=== PATIENT | female | born 1975 | race Caucasian/White ===

== ENCOUNTER 2019-01-09 08:18 | Outpatient (REF) | payer OTHER, SELFPAY ==
[2019-01-09 12:00] LABS: Cholesterol 244 mg/dL (50-200); Glucose 84 mg/dL (70-100); HDL Cholesterol 44 mg/dL (40-60); LDL CHOLESTEROL 172 mg/dL (<100); Triglyceride 177 mg/dL (30-150)
== END 2019-01-09 08:38 ==
LOC: NCHCN 08:18
PROVIDERS: PCP Family Medicine; Visit Provider Family Medicine
DX: Z00.00 Encounter for general adult medical examination without abnormal findings (principal); Z13.220 Encounter for screening for lipoid disorders; Z13.1 Encounter for screening for diabetes mellitus
CPT/HCPCS: 80061; 82947; 83721

== ENCOUNTER 2019-05-04 01:05 | Emergency (ER) | payer OTHER, SELFPAY ==
--- NOTE | 2019-05-04 01:07 | ED.GENADUL_ITS ---
Discharge Plan Disposition Patient Disposition: HOME Condition: Good Discharge Details Chief Complaint: Orthopedic Clinical Impression: Pain of right calf Primary Care Provider: Lorenzo Breaux ED Provider: Villa Willson Home Meds and New Rx's Prescriptions: No Action PMT Vitamin 2 TID RF: 0 paroxetine HCl [Paxil] 30 MG tablet 1 tab PO DAILY RF: 0 Discharge Instructions Instructions: Leg Pain (ED) Additional Instructions: At this time although the likelihood is low for a blood clot it is still in the differential needs to be looked at further. Please come back tomorrow at your scheduled ultrasound appointment to rule out a blood clot. In the meantime I do feel that a muscle strain is a very likely cause of your pain as well. Please continue to use Tylenol, 1000 mg every 6 hours for pain. Please use ice and heat as needed. If you notice any worsening of your symptoms, or any new symptoms such as vomiting, diarrhea, fever, chills, shortness of breath, chest pain, numbness, weakness, or fainting , please return immediately to the emergency department for reevaluation. Please follow up with your primary care provider as soon as possible for reassessment and reevaluation. As always, it was a pleasure participating in your medical care today. Referrals: Lorenzo Breaux [Primary Care Provider] - Medical Decision Making This is a 43-year-old female who presents today for evaluation of right calf pain. She states that yesterday the pain started in her arch on her right foot and her ankle without any traumatic event. It then migrated up to her right calf. Pain is worse with palpation. She denies any trauma, redness, fever or chills. She denies any PE or DVT red flags. She denies any chest pain or shortness of breath. Exam demonstrates mildly reproducible tenderness over the medial aspect of the calf, no recent fluoroquinolone use. No evidence of significant trauma or deformity. Signs and symptoms appear consistent with mild tendinitis or muscle sprain. However the patient is notably concerning for DVT, which I do feel is reasonable. Unfortunately due to the current time ultrasound is not available. Limited bedside ultrasound showed notably compressible veins, however formal ultrasound is certainly indicated. We will schedule an ultrasound for tomorrow morning. We discussed blood thinners until she has her ultrasound tomorrow, however the patient states that she has a history of bleeding in the past when she took Paxil, and so because of this she does not want anything that could increase her chance of bleeding. We discussed the risk of this, and she understands and accepts these. She understands that this could lead to or disability if not appropriately treated prophylactically. Patient does understand this. Respecting the patient's wishes we will hold off on any blood thinners for the time being. We will schedule for an ultrasound tomorrow, recommend continue Tylenol, ice and heat. I have extensively reviewed the treatment plan and discharge instructions with the patient and their family. I have addressed all patient concerns at this time. The patient and family was made aware of what symptoms to monitor for that would warrant a return to the emergency department. Discussed the plan with the patient and family, they demonstrate verbal understanding and agreement with our assessment and plan at this time. HPI General Date/Time Provider Initiated Documentation: 05/04/19 01:07 . HPI Narrative: This is a pleasant 43-year-old female with a past medical history of d epression, and a previous GI bleed secondary to her previous medications who presents today for evaluation of right calf pain. The patient states that yesterday she noticed some pain in her foot and ankle, no initial traumatic incident to bring it about. The pain then transitioned from that location to her calf on the medial aspect. She describes it as an achy irritating-like sensation. Pain is made worse with movement. Improved by nothing. She has taken Tylenol and this is not significantly improved his symptoms. Denies DVT risk factors such as recent long car rides, immobilization, recent surgery, prior history of DVT or PE, family history of PE or DVT, morbid obesity, exogenous estrogen and smoking, hemoptysis, history of cancer. She denies any fever or chills. She denies any recent fluoroquinolone use. She denies any associated numbness or tingling or weakness. No other complaints at this time. No other modifying factors. Related Data Home Medications Medication Instructions Recorded Confirmed paroxetine HCl [Paxil] 1 tab PO DAILY 12/26/13 12/26/13 Pmt Vitamin 2 TID 01/22/14 Allergies Allergy/AdvReac Type Severity Reaction Status Date / Time Penicillins Allergy Unverified 01/22/14 13:33 apples Allergy Intermediate Diarrhea Uncoded 12/26/13 12:53 Review of Systems Review of Systems All systems reviewed & are unremarkable except as noted in HPI and below PFSH Medical History Anxiety Surgical History (Updated 07/18/18 @ 14:35 by [employer]) Cystectomy, Mini Lap Ovarian Tonsillectomy Family History (Updated 02/23/14 @ 21:25 by ) Other Heart disease Hyperlipidemia Social History Smoking/Tobacco Use Status: Former Tobacco Use Alcohol Intake: never Drug use: Never Do you feel safe at home: Yes Do you feel safe in your relationship?: Yes Exam Narrative Exam Narrative: 1.Const: Well-nourished, Well-developed, appearing stated age 2.Eyes: PERRL, no conjunctival injection, and symmetrical lids. 3.ENT: Atraumatic external nose and ears. Moist MM. Neck: Symmetric, trachea midline, No thyromegaly. 4.CVS: +S1/S2, No murmurs or gallops. Peripheral pulses 2+ and equal in all extremities. Brisk capillary refill in all extremities. 5.RESP: Unlabored respiratory effort. Clear to auscultation bilaterally. No wheezes rales or rhonchi 6.GI: Soft, Nontender/Nondistended, No hepatosplenomegaly. No guarding or rebound. 7.MSK: Normocephalic/Atraumatic, Extremities w/o deformity. No cyanosis or clubbing, Normal movement of all extremities. Right lower extremity 1 no tenderness on the heel, ankle, or foot. No evidence of plantar fasciitis. Normal neurovascular exam, normal sensation and movement throughout. Normal plantar and dorsiflexion strength. Mild reproducible tenderness over the medial aspect of the right calf. Negative Homans sign. Limited bedside ultrasound demonstrates compressible vessels. No redness, erythema, no tension of the calf. No evidence of muscular deformity. Compartments are soft. 8.Skin: Warm, Dry. No rashes or lesions. 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 Sensation grossly intact, no focal neurologic deficits. 10.Psych: (AAO) x3. Appropriate mood and affect
[2019-05-04 01:22] VITALS: BP 121/65; PULSE 80; RESP 20; TEMP 36.8; O2SAT 96
[2019-05-04 01:32] VITALS: BP 121/65; PULSE 80; RESP 20; O2SAT 96
== END 2019-05-04 01:32 | disposition home or self-care (01) ==
PROVIDERS: Emergency Provider Student in an Organized Health Care Education/Training Program; PCP Family Medicine
DX: M79.661 Pain in right lower leg (principal)
CPT/HCPCS: 99282

== ENCOUNTER 2019-05-04 11:13 | Outpatient (CLI) | payer OTHER, SELFPAY ==
--- NOTE | 2019-05-04 11:22 | DI.US_ITS ---
SYMPTOMS/DIAGNOSIS: RIGHT LOWER EXTREMITY CALF PAIN, ATRAUMATIC, X 3-4 DAYS RIGHT LOWER EXTREMITY ULTRASOUND: The femoral and popliteal veins and visualized calf veins are freely compressible. No thrombus is visible. The Doppler venous waveform augments normally. The saphenous vein also appears free of thrombus. No hematoma or Alberto's cyst is seen. IMPRESSION: Negative right lower extremity ultrasound.
--- NOTE | 2019-05-04 11:51 | DI.VRAD_ITS ---
EXAM: US Duplex Right Lower Extremity Veins, Limited EXAM DATE/TIME: 05/04/2019 11:44 AM CLINICAL HISTORY: 43 years old, female; Leg, lower; Right; Patient HX: Atraumatic ankle to calf pain x 3-4 days TECHNIQUE: Imaging protocol: Real-time Duplex ultrasound of the Right Lower Extremity with 2-D faye scale, color Doppler flow and spectral waveform analysis with image documentation. Limited exam was focused on the right lower extremity veins. COMPARISON: No relevant prior studies available. FINDINGS: Right deep veins: Unremarkable. The common femoral, femoral, proximal profunda femoral and popliteal veins are patent without thrombus. Normal Doppler waveforms. Normal compressibility and/or augmentation response. Right superficial veins: Unremarkable. Saphenofemoral junction is patent without thrombus. Soft tissues: Unremarkable. IMPRESSION: No acute findings. No evidence of deep vein thrombosis. Dictated and Authenticated by: Mylene Blanton MD. Ordering:PHI Driver MD
== END 2019-05-04 11:33 ==
PROVIDERS: PCP Family Medicine; Visit Provider Family Medicine Adult Medicine
DX: M79.661 Pain in right lower leg (principal)
CPT/HCPCS: 93971

== ENCOUNTER 2019-05-04 11:47 | Emergency (ER) | payer OTHER, SELFPAY ==
[2019-05-04 11:53] VITALS: BP 113/64; PULSE 76; RESP 16; TEMP 36.7; O2SAT 100
--- NOTE | 2019-05-04 14:46 | W.ED.GENAD ---
Discharge Plan Disposition Patient Disposition: HOME Condition: Good Discharge Details Chief Complaint: Recheck Clinical Impression: Right ankle strain Primary Care Provider: Lorenzo Breaux ED Provider: Orlando Ulloa Home Meds and New Rx's Prescriptions: No Action PMT Vitamin 2 tab PO TID RF: 0 sertraline [Zoloft] 50 mg Tablet 50 mg PO DAILY RF: 0 Discharge Instructions Instructions: Muscle Strain (ED) Additional Instructions: You may continue to use [id number] pain medication as needed for discomfort, slowly advance activity as tolerated and use the provided splint for the next 3 to 4 weeks. If not improving in the next couple weeks please follow-up with your primary care provider for reassessment and feel free to return to the emergency department for any new or significant worsening of symptoms Referrals: Lorenzo Breaux [Primary Care Provider] - (As needed for reassessment) Discharge Data Discharge Date/Time-TO BE ENTERED AT DEPARTURE: 05/04/19 14:54 Medical Decision Making Patient started having right arch, heel, ankle pain that is traveled up into her calf over the past couple days. Patient was seen the emergency department last night and informed this is most likely muscle skeletal but did have DVT study performed to rule out DVT given calf pain. Patient denies any known injury or trauma. Review of radiological imaging and radiologist dictation shows no evidence of deep thrombosis and no acute findings noted. Patient was fully assessed and does show medial mentis tenderness to the right ankle traveling up into the calf. Patient placed up in a lace up ankle brace for additional support which seemed to help her symptoms. Patient was encouraged to wear this over the next 3 to 4 weeks and follow-up with primary care provider as needed or if not improving. Return precautions were discussed. After discussion of diagnosis and plan of care patient has no further needs, questions, or concerns and states clear understanding to return to the emergency department for any worsening symptoms. HPI General Mode of arrival: ambulatory. Date/Time Provider Initiated Documentation: 05/04/19 11:51. Limitations to Documentation: no limitations. Information obtained by: patient and RN notes reviewed. History of Present Illness 43 year old F presents to the emergency department with the chief complaint of right leg pain, described as moderate, with intensity rated at 6. Quality is described as aching, and is localized to the right and lower extremity. Patient started experiencing this day(s) (3) and it has been constant. No exacerbating factors reported . Patient notes no other symptoms.. Related Data Home Medications Medication Instructions Recorded Confirmed Pmt Vitamin 2 tab PO TID 01/22/14 05/04/19 sertraline [Zoloft] 50 mg PO DAILY 05/04/19 05/04/19 Allergies Allergy/AdvReac Type Severity Reaction Status Date / Time Penicillins Allergy Unverified 05/04/19 11:57 apples Allergy Intermediate Diarrhea Uncoded 05/04/19 11:57 General Stated Complaint: Recheck DIPTI: 4 Review of Systems Cardiovascular Denies chest pain, Reports leg edema and Denies dyspnea Respiratory Denies dyspnea Musculoskeletal Reports as per HPI, Denies numbness and Denies tingling Neurologic Denies numbness, Denies sensory deficit and Denies tingling COUNT INCLUDES THE [facility] Surgical History (Updated 07/18/18 @ 14:35 by [employer] [place]) Cystectomy, Mini Lap Ovarian Tonsillectomy Family History (Updated 02/23/14 @ 21:25 by ) Other Heart disease Hyperlipidemia Social History Smoking/Tobacco Use Status: Former Tobacco Use Alcohol Intake: never Drug use: Never Do you feel safe at home: Yes Do you feel safe in your relationship?: Yes Exam Const General: cooperative, no acute distress and not ill appearing Orientation: alert, awake and oriented x3 HENMT Mouth: moist mucous membranes Resp Effort & Inspection: normal respiratory effort, able to speak in complete sentences and no respiratory distress Cardio Rate: regular rate Rhythm: regular rhythm Skin General skin exam: no rashes or lesions noted Extrem Right lower extremity: lower leg Details: tenderness Location: of the posterior calf and no edema; no erythema, no localized swelling, no palpable cords and no deformity, ankle Details: tenderness Location: anteromedially; not of the lateral malleolus and not of the medial malleolus; no swelling and foot Details: normal capillary refill, normal to inspection and toes with normal ROM; no tenderness Course Vital Signs Temperature 36.7 C 05/04/19 11:53 Pulse 76 05/04/19 11:53 Respiratory Rate 16 05/04/19 11:53 Blood Pressure 113/64 05/04/19 11:53 Pulse Oximetry 100 05/04/19 11:53 Temperature 36.7 C 05/04/19 11:53 Temperature Source Skin 05/04/19 11:53 Pulse 76 05/04/19 11:53 Respiratory Rate 16 05/04/19 11:53 Respiratory Effort Non-Labored 05/04/19 11:55 Blood Pressure 113/64 05/04/19 11:53 Pulse Oximetry 100 05/04/19 11:53 Pain Level 6 05/04/19 11:53
== END 2019-05-04 14:54 | disposition home or self-care (01) ==
PROVIDERS: Emergency Provider Nurse Practitioner Family; PCP Family Medicine
DX: S96.911A Strain of unspecified muscle and tendon at ankle and foot level, right foot, initial encounter (principal); X58.XXXA Exposure to other specified factors, initial encounter
CPT/HCPCS: L1902

== ENCOUNTER 2019-05-17 01:47 | Emergency (ER) | payer SELFPAY ==
[2019-05-17] VITALS (25 sets, daily range): BP systolic 118–135; BP diastolic 46–84; PULSE 76–93; RESP 12–22; TEMP 36.8; O2SAT 95–100
--- NOTE | 2019-05-17 01:52 | ED.GENADUL_ITS ---
Discharge Plan Disposition Patient Disposition: HOME Condition: Good Discharge Details Chief Complaint: Palpitatns Clinical Impression: Palpitations Primary Care Provider: Lorenzo Breaux ED Provider: Lalo Watson Home Meds and New Rx's Prescriptions: Continued sertraline [Zoloft] 50 mg Tablet 20 mg PO DAILY RF: 0 calcium carbonate-vitamin D3 [Calcium 500 + D] 500 mg(1,250mg) -200 unit Tablet 1 tab PO DAILY RF: 0 Discharge Instructions Instructions: Palpitations (ED) Additional Instructions: Your EKG is unchanged from previous. Your laboratory studies are unremarkable. Vital signs including heart rate remained normal here in the department. Please follow-up with primary care next week. Return to emergency department for chest pain, shortness of breath, syncope, neurologic changes, other concerns. Referrals: Lorenzo Breaux [Primary Care Provider] - Medical Decision Making Patient presents with complaint of palpitations, generalized weakness, lightheadedness. She has a history of anxiety but has never really had palpitations like this. She reports a maximum heart rate of 115 according to her Fitbit. Vital signs here are normal. Physical exam is unremarkable. EKG shows sinus rhythm. She has not been ill. She denies having any type of chest pain or back pain. There is no shortness of breath. With maximum heart rate of 115 doubt significant arrhythmia. IV is in place. We will give a liter of fluid. I will check basic labs including a TSH. Laboratory studies are unremarkable. Potassium is mildly low but not enough so to cause significant symptoms. TSH was high but free T4 is come back normal. Patient's vital signs have remained normal here. There is been no arrhythmias or tachycardia. Patient does state she feels a little better but still does not feel herself. She has received a liter of fluid. I think she can be discharged follow-up with primary care as outpatient. Return to ED for chest pain, shortness of breath, syncope, neurologic changes, other concerns. Lab Data Lab results reviewed: Yes I reviewed the patient's lab results. ECG Data Attestation: I personally reviewed and interpreted this ECG (s) as follows: Prior ECG tracings: available for review Interpretation: Normal sinus rhythm at a rate of 80. Normal axis and intervals. No acute ST changes. No significant change compared to EKG from 2007. HPI General Mode of arrival: EMS . Date/Time Provider Initiated Documentation: 05/17/19 01:50 . Limitations to Documentation: no limitations . Information obtained by: patient, RN notes reviewed and old records reviewed . HPI Narrative: Patient presents to ED with complaints of palpitations. Patient awoke with palpitations and felt like her heart was racing. She became lightheaded and weak. She reports general weakness not focal. She felt like she was going to pass out. She developed some nausea. At no time did she get chest pain, pressure, tightness. She had no shortness of breath. She did not have syncope. She has not been ill. There has been no fever, vomiting, diarrhea. She reports that her Fitbit documented her heart rate as high as 115. She became concerned and had her called EMS. Related Data Home Medications Medication Instructions Recorded Confirmed sertraline [Zoloft] 20 mg PO DAILY 05/04/19 05/17/19 calcium carbonate-vitamin D3 1 tab PO DAILY 05/17/19 05/17/19 [Calcium 500 + D] Allergies Allergy/AdvReac Type Severity Reaction Status Date / Time Penicillins Allergy Unverified 05/17/19 01:57 apples Allergy Intermediate Diarrhea Uncoded 05/17/19 01:57 General DIPTI: 4 Review of Systems Review of Systems 07/15 Review of Systems completed and is negative except as stated above in HPI (Systems reviewed: Const, Eyes, ENT, Resp, CV, GI, , MSK, Skin, Neuro) PFSH Medical History Anxiety Surgical History Cystectomy, Mini Lap Ovarian Tonsillectomy Family History (Updated 02/23/14 @ 21:25 by ) Other Heart disease Hyperlipidemia Social History Smoking/Tobacco Use Status: Former Tobacco Use Alcohol Intake: never Drug use: Never Do you feel safe at home: Yes Do you feel safe in your relationship?: Yes Exam Narrative Exam Narrative: Vitals: Afebrile with normal vital signs and normal pulse oximetry on room air. Const: WDWN female in NAD. HEENT: NC/AT. Normal facial exam. Eyes: Normal conjunctiva and sclera. Neck: Supple. Trachea midline. Thyroid WNL. Lungs: Normal respiratory effort. Lungs are clear. Cor: RRR without murmur/gallop. Good radial pulses. GI: Soft. NT/ND. No guarding or rebound. Neuro: A+O x 3. CN II - XII in tact. Normal mental status, speech, strength and sensation. Ext: No C/C/E. No deformity or tenderness. No calf tenderness. Skin: Warm and dry.
[2019-05-17 02:29] LABS: HCT 34.9 % (36.0-46.0); HGB 12.1 g/dL (12.0-15.5); Mean Corp. HGB Concentration 34.7 g/dL (32.0-36.0); Mean Corpuscular Hemoglobin 28.9 pg (27.0-33.0); Mean Corpuscular Volume 83.5 fL (80-95); Mean Platelet Volume 9.6 fL (8.0-11.0); Platelet Count 274 x1000/uL (130-400); RBC 4.18 m/cumm (4.00-5.20); RBC Distribution Width 13.1 % (11.7-14.6); White Blood Cell Count 8.92 k/cumm (4.4-10.8)
[2019-05-17] MEDS: Normal Saline 1,000 ML 1000 ML IV (02:37)
[2019-05-17 03:05] LABS: Anion Gap 12.3 mmol/L (3-11); BUN 9 mg/dL (7-18); CO2 22.7 mmol/L (21.0-32.0); CREATININE 0.71 mg/dL (0.55-1.02); Calcium 9.3 mg/dL (8.5-10.1); Chloride 102 mmol/L (98-107); Glucose 115 mg/dL (70-100); Magnesium 2.1 mg/dL (1.8-2.4); Potassium 3.4 mmol/L (3.5-5.1); Sodium 137 mmol/L (136-145); TSH (W/Ref FT4) 4.54 uIU/mL (0.36-3.74)
[2019-05-17 03:55] LABS: FREE T4 1.06 ng/dL (0.76-1.46)
== END 2019-05-17 04:13 | disposition home or self-care (01) ==
PROVIDERS: Emergency Provider Emergency Medicine; PCP Family Medicine
DX: R00.2 Palpitations (principal); R53.1 Weakness; R42 Dizziness and giddiness; F41.9 Anxiety disorder, unspecified
CPT/HCPCS: 36415; 80048; 85027; 93005; 96360; 99284; 83735; 84439; 84443; 93010; 99285

== ENCOUNTER 2020-04-23 09:13 | Outpatient (CLI) | payer BC, SELFPAY ==
--- NOTE | 2020-04-23 11:15 | DI.RAD_ITS ---
EXAM: XR CHEST 2V PA LATERAL CLINICAL HISTORY: ATYPICAL CHEST PAIN R07.9 TECHNIQUE: 2D digital imaging was performed. COMPARISON: No exams were available for comparison FINDINGS: MEDIASTINUM: Normal. HEART: Normal. PULMONARY VASCULATURE: Normal. LUNGS: Clear. PLEURAL SPACE: No pleural effusion or pneumothorax. BONE:Normal. OTHER FINDINGS:Normal. IMPRESSION: No acute pulmonary findings. DATA REPOSITORY: RADIATION DOSE DELIVERED:
== END 2020-04-23 09:33 ==
PROVIDERS: PCP Family Medicine; Visit Provider Family Medicine
DX: R07.89 Other chest pain (principal)
CPT/HCPCS: 71046

== ENCOUNTER 2020-06-05 16:54 | Outpatient (REF) | payer BC, SELFPAY ==
[2020-06-05 20:07] LABS: Anion Gap 8.5 mmol/L (3-11); BUN 8 mg/dL (7-18); CO2 26.5 mmol/L (21.0-32.0); CREATININE 0.68 mg/dL (0.55-1.02); Calcium 9.1 mg/dL (8.5-10.1); Chloride 102 mmol/L (98-107); Glucose 95 mg/dL (74-106); Potassium 4.1 mmol/L (3.5-5.1); Sodium 137 mmol/L (136-145); TSH (W/Ref FT4) 1.78 uIU/mL (0.36-3.74)
== END 2020-06-05 17:14 ==
LOC: NCHCN 16:54
PROVIDERS: PCP Family Medicine; Visit Provider Family Medicine
DX: E03.9 Hypothyroidism, unspecified (principal); E87.6 Hypokalemia
CPT/HCPCS: 80048; 84443

== ENCOUNTER 2020-07-21 13:36 | Outpatient (CLI) | payer BC, SELFPAY ==
[2020-07-21 14:43] LABS: D-Dimer 482 ng/mlFEU (<500)
== END 2020-07-21 13:56 ==
LOC: LBO 13:37 → NCHCO 13:39
PROVIDERS: PCP Family Medicine; Visit Provider Family Medicine
DX: R07.89 Other chest pain (principal)
CPT/HCPCS: 36415; 85379

== ENCOUNTER 2020-07-28 01:18 | Outpatient (CLI) | payer BC, SELFPAY ==
--- NOTE | 2020-07-28 14:30 | DI.CT_ITS ---
EXAM: CT CHEST W CLINICAL HISTORY: ATYPICAL CHEST PAIN,R07.9,PROGRESSIVE LT SIDED,SOB TECHNIQUE: COMPARISON: No exams were available for comparison FINDINGS: CT examination of the chest was performed bolus infusion of 70 cc of 350. Images obtained through th e upper abdomen show unremarkable appearance of visualized portions liver, spleen, pancreas, adrenals , and kidneys. No pleural effusion seen. No mediastinal or hilar adenopathy seen. There is no evidence of pulmonar y embolic disease. Thoracic aorta and major branches appear intact. Tracheobronchial tree appears i ntact. Lungs are predominantly clear. There is a 7 millimeter in diameter right lower lobe intrapulmonary n odule with mildly irregular margins. No additional pulmonary nodule or consolidation identified. IMPRESSION: Solitary right lower lobe pulmonary nodule. Follow-up chest CT recommended in 6 months to rule out m alignancy. No additional significant findings. RADIATION DOSE DELIVERED: 540.25mGy.cm Total DLP
[2020-07-28] MEDS: Omnipaque 350 MG/ML 100 ML BTL 70 ML IJ (14:54)
== END 2020-07-28 01:38 ==
PROVIDERS: PCP Family Medicine; Visit Provider Family Medicine
DX: R07.89 Other chest pain (principal); R91.1 Solitary pulmonary nodule
CPT/HCPCS: 71260; J3490

== ENCOUNTER 2020-08-21 18:21 | Outpatient (REF) | payer BC, SELFPAY ==
[2020-08-25 03:40] LABS: Patient Race White; SARS-CoV-2 RNA Undetected (Undetected); SARS-CoV-2 Specimen Source Nasal
== END 2020-08-21 18:41 ==
LOC: NCHCN 18:21
PROVIDERS: PCP Family Medicine; Visit Provider Nurse Practitioner Family
DX: Z11.59 Encounter for screening for other viral diseases (principal)
CPT/HCPCS: U0003

== ENCOUNTER 2020-10-26 11:59 | Outpatient (REF) | payer BC, SELFPAY ==
--- NOTE | 2020-10-26 11:00 | PAPFT_PTH ---
PATIENT: Silvia Jarrell LOC: [facility] U#:[id number] AGE/SX: 45/F ROOM: RE10/26/[address]: Brenda Yates NP : 1975 BED: DIS: 10/26/2020 SPEC #: [id number] RECD: 10/26/20 12:52 STATUS: RADHA REQ #: [id number] GAURANG: 10/26/20 11:[address]: Brenda Yates NP DEPT: [facility] Cytology RECD BY: Tashia Murray ENTERED: 10/26/20 12:52 SP TYPE: PAPFT OTHR DR: Lorenzo Breaux Tissues: 1 - CX/ENDOCX FOR PAP SMEARS Procedures: PAP THIN PREP/UVM Screening HPV DNA PROBE Comments: [id number]
== END 2020-10-26 12:19 ==
LOC: LBN 11:59
PROVIDERS: PCP Family Medicine; Visit Provider Nurse Practitioner Women's Health
DX: Z12.4 Encounter for screening for malignant neoplasm of cervix (principal); Z11.51 Encounter for screening for human papillomavirus (HPV)
CPT/HCPCS: 88142; 87624

== ENCOUNTER 2020-11-06 02:13 | Outpatient (CLI) | payer BC, SELFPAY ==
--- NOTE | 2020-11-06 08:30 | DI.MAMMO_ITS ---
EXAM: MG MAMMO SCREENING CLINICAL HISTORY: screening TECHNIQUE: Bilateral full field digital CC and MLO mammographic images were obtained with 3D tomosyn thesis and utilizing computer aided detection (CAD). COMPARISON: Available for comparison. FINDINGS: Masses/Architectural Distortion: None seen. Microcalcifications: No suspicious pleomorphic-type are seen. Skin Thickening/Nipple Retraction: None. IMPRESSION: 1. No significant interval change with no specific features of malignancy noted. 2. Unless there is more urgent need, screening mammography is recommended, as per [employer] guidelines. BI-RADS Category 1 - Negative Breast Density - Category B - Scattered areas of fibroglandular density Breast density category C or D implies that the patient has dense breast tissue. Dense breast tissue is very common and is not abnormal but dense breast tissue can make it harder to find cancer on a ma mmogram. Also, dense breast tissue may increase their breast cancer risk. This information about the result of the mammogram report was provided to the patient to raise their awareness. Use this report when you speak with the patient about their risks for breast cancer, which includes their family hist ory. At that time, you may recommend for more screening tests (Ultrasound or MRI) as they might be us eful based on their risk. A negative radiographic report should not delay biopsy if a dominant or clinically suspicious mass is present. Up to ten percent of cancers are not identified on mammography. A negative report may reinforce clinical impression. Adenosis and dense breasts may obscure an underlying neoplasm. False positive reports average 6 to 10%. Patient will receive a letter notifying them of these results.
== END 2020-11-06 02:14 ==
LOC: DI 02:13
PROVIDERS: PCP Family Medicine; Visit Provider Nurse Practitioner Women's Health
DX: Z12.31 Encounter for screening mammogram for malignant neoplasm of breast (principal)
CPT/HCPCS: 77063; 77067

== ENCOUNTER 2021-04-09 17:50 | Outpatient (REF) | payer BC, SELFPAY ==
[2021-04-09 16:35] LABS: Anion Gap 11.2 mmol/L (3-11); BUN 6 mg/dL (7-18); CO2 25.8 mmol/L (21.0-32.0); CREATININE 0.6 mg/dL (0.55-1.02); Calcium 9.5 mg/dL (8.5-10.1); Chloride 103 mmol/L (98-107); Glucose 107 mg/dL (74-106); Potassium 4.3 mmol/L (3.5-5.1); Sodium 140 mmol/L (136-145); TSH (W/Ref FT4) 1.29 uIU/mL (0.36-3.74)
== END 2021-04-09 17:51 | disposition home or self-care (01) ==
LOC: NCHCN 17:50
PROVIDERS: PCP Family Medicine; Visit Provider Family Medicine
DX: E02 Subclinical iodine-deficiency hypothyroidism (principal); E87.6 Hypokalemia
CPT/HCPCS: 80048; 84443

== ENCOUNTER 2021-09-30 14:12 | Emergency (ER) | payer BC, SELFPAY ==
--- NOTE | 2021-09-30 14:15 | DI.CT_ITS ---
Exam(s) CT HEAD CERV SPINE FACIAL WO EXAM: CT HEAD CERV SPINE FACIAL WO CLINICAL HISTORY: fall, pain. TECHNIQUE: Imaging Protocol: Axial computed tomography images with coronal and sagittal reformatted images were created and reviewed COMPARISON: No exams were available for comparison FINDINGS: CT BRAIN: There are no skull fractures. There is fluid in the right maxillary sinus. There is no evidence of intracranial hemorrhage, mass effect, or shift of midline structures. There are no extra-axial fluid collections. The ventricles are not enlarged or shifted and there is no blo od within the ventricular system nor within the basal cisterns. CT MAXILLOFACIAL BONES: No evidence of orbital blowout fracture. Some fluid is noted in the right maxillary sinus but not as sociated with a fracture of the sinus and orbit. No evidence of acute nasal bone fracture. Septum is deviated towards the right on a developmental ba sis and there is tammy bullosa of the left middle turbinate. Ostiomeatal units are patent bilateral ly. No significant findings in the orbital globes and retro conal regions. CT CERVICAL SPINE: There is no evidence of fracture nor listhesis. No significant prevertebral soft tissue swelling. N o facet malalignment evident. No significant osseous lesions evident. IMPRESSION: No acute intracranial findings on this noninfused CT scan of the brain. No evidence of facial nor orbital blowout fractures.Some fluid is noted in the right maxillary sinus. No evidence of cervical spine fracture, malalignment, nor acute compromise of the cervical spinal can al. RADIATION DOSE DELIVERED: 1,690.17mGy.cm Total DLP DATA REPOSITORY: All CT scans at this facility are submitted to the National Radiology Data Registry (NRDR) Dose Index Registry (DIR) with the [employer] ([employer]). RADIATION OPTIMIZATION: All CT scans at this facility use at least one of these dose optimization te chniques: automated exposure control; mA and/or kV adjustment per patient size (includes targeted exa ms where dose is matched to clinical indication); or iterative reconstruction.
[2021-09-30 14:17] VITALS: BP 129/77; PULSE 76; RESP 18; TEMP 36.3; O2SAT 99
--- NOTE | 2021-09-30 14:25 | DI.CT_ITS ---
Exam(s) CT THORACIC LUMBAR SPINE WO EXAM: CT THORACIC LUMBAR SPINE WO CLINICAL HISTORY: pain s/p fall. TECHNIQUE: Imaging Protocol: Axial computed tomography images with coronal and sagittal reformatted images were created and reviewed. CONTRAST MATERIAL: Intravenous: Omnipaque 350 Contrast volume:structured data in ml Contrast route:I V - Oral: yes / no COMPARISON: No exams were available for comparison FINDINGS: THORACIC SPINAL COLUMN: There is no evidence of thoracic vertebral fractures nor listhesis. No facet malalignment. No compr omise of the spinal canal. No scoliosis. Incidentally noted is a 6 x 5 millimeter nodule in the right lower lobe. LUMBOSACRAL SPINAL COLUMN: No fractures nor listhesis. No pars defects. No spinal canal stenosis. No foraminal stenosis. No face t malalignment. IMPRESSION: No fractures of the thoracic and lumbar spines. Incidentally noted is a 6 millimeter nodule in the right lower lobe. RADIATION DOSE DELIVERED: 1,372.98mGy.cm Total DLP DATA REPOSITORY: All CT scans at this facility are submitted to the National Radiology Data Registry (NRDR) Dose Index Registry (DIR) with the [employer] ([employer]). RADIATION OPTIMIZATION: All CT scans at this facility use at least one of these dose optimization te chniques: automated exposure control; mA and/or kV adjustment per patient size (includes targeted exa ms where dose is matched to clinical indication); or iterative reconstruction.
--- NOTE | 2021-09-30 14:26 | ED.GENADUL_ITS ---
Discharge Plan Disposition Patient Disposition: HOME Condition: Stable Discharge Details Clinical Impression: Blunt head trauma, Cervical strain, Lung nodule, Contusion of back Primary Care Provider: Lorenzo Breaux ED Provider: Satish Yates Home Meds and New Rx's Prescriptions: New cyclobenzaprine 10 mg tablet 10 mg PO TID PRNQty: 20 RF: 0 Continued lorazepam 0.5 mg tablet 0.5 mg PO DAILY PRNRF: 0 sertraline [Zoloft] 50 mg Tablet 100 mg PO DAILY RF: 0 Discharge Instructions Instructions: Cervical Strain (ED) Additional Instructions: your cat scans did not show any bleeding or broken bones you had a lung nodule on your cat scan that you should tell your primary care provider of when you follow up with them as you may need future imaging to monitor this if you have severe worsening pain or new pain such as abdominal pain or feel more ill return to the emergency department if pain continues in a week follow up with your primary care provider Medical Decision Making 46 yo female comes in with neck pain and upper back pain after falling. SHe was on a step stool about 4 feet off the ground painting the trim in her house and lost balance and fell backwards. Denies preceding symptoms to the fall such as chest pain or dyspnea and had no loc. HAs posterior head pain, neck pain and upper back pain. She arrives stable speaking clearly. She has no focal motor or sensation deficits. Has tenderness with palpation tot he upper T spine, no lower back tenderness, has mid neck tenderness and posterior head tenderness, no significant signs of trauma. No pain with palpation to the chest or abdomen. Suspect likely strains and contusion but will ct to evaluate for traumatic injury after initial assessment patient complaining of mid low back pain and does have tenderness in the mid L spine. Will also obtain ct lumbar spine imaging unremarkable, no midline c spine pain and cleared collar. Still no chest or abdomen tenderness. Had a lung nodule on CT which she was informed of. She is stable for d/c, return precautions given Differential Diagnosis Differential Diagnosis: tbi c spine fracture, thoracic spine fracture Imaging Data Radiologic Study: Attestation: I personally reviewed and interpreted this imaging study as follows: Imaging: CT Scan Radiologist's impression: no acute findings head/c spine Radiologic Study #2: Attestation: I personally reviewed and interpreted this imaging study as follows: Imaging: CT Scan Radiologist's impression: FINDINGS: THORACIC SPINAL COLUMN: There is no evidence of thoracic vertebral fractures nor listhesis. No facet malalignment. No compromise of the spinal canal. No scoliosis. Incidentally noted is a 6 x 5 millimeter nodule in the right lower lobe. LUMBOSACRAL SPINAL COLUMN: No fractures nor listhesis. No pars defects. No spinal canal stenosis. No foraminal stenosis. No facet malalignment. HPI General Mode of arrival: EMS . Date/Time Provider Initiated Documentation: 09/30/21 14:21 . Limitations to Documentation: no limitations . Information obtained by: patient . History of Present Illness 46 year old F presents to the emergency department with the chief complaint of neck pain, described as moderate, and is localized to the neck. Patient started exp eriencing this hour(s) (1) and it has been constant. No relieving factors improve symptom(s), No exacerbating factors reported . Related Data Home Medications Medication Instructions Recorded Confirmed sertraline [Zoloft] 100 mg PO DAILY 05/04/19 09/30/21 lorazepam 0.5 mg tablet 0.5 mg PO DAILY PRN 10/26/20 09/30/21 cyclobenzaprine 10 mg PO TID PRN #20 tab 09/30/21 Previous Rx's Medication Instructions Recorded cyclobenzaprine 10 mg PO TID PRN #20 tab 09/30/21 Allergies Allergy/AdvReac Type Severity Reaction Status Date / Time Penicillins Allergy Verified 09/30/21 14:21 apples Allergy Intermediate Diarrhea Uncoded 09/30/21 14:21 General Stated Complaint: Nk/Back Pain DIPTI: 3 Review of Systems All systems reviewed & are unremarkable except as noted in HPI and below Constitutional Constitutional: Denies chills, Denies fever(s) and Denies weakness Cardiovascular Cardiovascular: Denies chest pain and Denies dyspnea Respiratory Respiratory: Denies cough and Denies dyspnea Gastrointestinal Gastrointestinal: Denies abdominal pain, Denies nausea and Denies vomiting Musculoskeletal Musculoskeletal: Denies joint swelling Neurologic Neurologic: Denies weakness PFSH All Active Problems (Updated 09/30/21 @ 16:15 by Satish Yates MD) Blunt head trauma (Acute) Cervical strain (Acute) Lung nodule (Acute) Contusion of back (Acute) Anxiety and depression (Chronic) Perimenopausal (Acute) Medical History (Updated 09/30/21 @ 16:15 by Satish Yates MD) Anxiety Surgical History Cystectomy, Mini Lap Ovarian Tonsillectomy Family History Other Heart disease Hyperlipidemia Social History Smoking/Tobacco Use Status: Former Tobacco Use Smoking risk assessment performed?: Yes Alcohol Intake: never Drug use: Never Do you feel safe at home: Yes Do you feel safe in your relationship?: Yes Female Reproductive History Menstrual control method: none History History 3 Para 2 Hx # Term Pregnancies Multiple births Hx # Pregnancies Ectopic pregnancies AB induced Hx Number of Living Children AB spontaneous 1 Exam Const General: no acute distress Orientation: alert HENMT Head: normal to inspection Ears: external ears normal General nose exam: external nose normal Mouth: moist mucous membranes Eyes General: appearance normal, both eyes and all related structures Neck Neck: normal visual inspection Chest Chest: no tenderness Resp Effort & Inspection: normal respiratory effort and able to speak in complete sentences Cardio Rate: regular rate GI Palpation: soft and nontender Skin General skin exam: no rashes or lesions noted Neuro General: patient alert and patient oriented x3 Extrem General: normal to inspection Psych Mental Status: mental status grossly normal Course Vital Signs Vital signs: Vital Signs Temperature 36.3 C L 09/30/21 14:17 Pulse 76 09/30/21 14:17 Respiratory Rate 18 09/30/21 14:17 Blood Pressure 129/77 09/30/21 14:17 Pulse Oximetry 99 09/30/21 14:17 Temperature 36.3 C L 09/30/21 14:17 Temperature Source Skin 09/30/21 14:17 Pulse 76 09/30/21 14:17 Respiratory Rate 18 09/30/21 14:17 Respiratory Effort 09/30/21 14:22 Blood Pressure 129/77 09/30/21 14:17 Blood Pressure Position Supine 09/30/21 14:17 Pulse Oximetry 99 09/30/21 14:17 Oxygen Delivery Method Room Air 09/30/21 14:17 Oxygen Flow Rate 0 09/30/21 14:17 Pain Level 7 09/30/21 14:17
[2021-09-30 16:48] VITALS: BP 129/82; PULSE 70; TEMP 36.2; O2SAT 99
== END 2021-09-30 16:49 | disposition home or self-care (01) ==
LOC: ER 16:36
PROVIDERS: Emergency Provider Emergency Medicine; PCP Family Medicine
DX: S09.8XXA Other specified injuries of head, initial encounter (principal); S16.1XXA Strain of muscle, fascia and tendon at neck level, initial encounter; S30.0XXA Contusion of lower back and pelvis, initial encounter; M54.89 Other dorsalgia; W17.89XA Other fall from one level to another, initial encounter; R91.1 Solitary pulmonary nodule
CPT/HCPCS: 99285; 70450; 70486; 72125; 72128; 72131; 99284